=== PATIENT | male | born 1950 | race Caucasian/White ===

== ENCOUNTER 2016-10-11 09:24 | Emergency (ER) | payer BC ==
[2016-10-11 09:51] VITALS: BP 146/96
--- NOTE | 2016-10-11 09:58 | EDM.PDOC ---
ED HPI GENERAL MEDICAL PROBLEM - General Chief Complaint: Back Pain or Injury Stated Complaint: BACK PAIN Time Seen by Provider: 10/11/16 09:54 Source of Information: Reports: Patient, RN Notes Reviewed - History of Present Illness INITIAL COMMENTS - FREE TEXT/NARRATIVE: 66-year-old male comes in with back pain. This started about a week to 10 days ago after a lifting incident. He was lifting and moving a "tree". Initially the pain was primarily in the left low back worse with moving. Over the last few days he's been having pain radiating down into the left leg. This is worse with certain positions and also worse with moving. He did take a couple of oxycodone left over from prostate surgery this past winter and that is helping him some at this time. He still does have moderate discomfort with pain radiating to the left lower leg. No numbness or tingling. He is never had anything of this nature before. No fall or other injury. Left Lower Back Pain Score (Numeric/FACES): 7 - Related Data Allergies Allergy/AdvReac Type Severity Reaction Status Date / Time No Known Allergies Allergy Verified 10/11/16 09:51 Home Meds: Home Meds Acetaminophen/oxyCODONE [Percocet 325-5 MG] 1 tab PO Q6H #20 tablet 10/11/16 [Rx ] Gabapentin [Neurontin] 300 mg PO DAILY 10/11/16 [History] Lisinopril 10 mg PO DAILY 10/11/16 [History] Naproxen [Naprosyn] 500 mg PO Q12HR #20 tablet 10/11/16 [Rx] Prednisone [IJD: predniSONE] 40 mg PO BID #10 tab 10/11/16 [Rx] Past Medical History Cardiovascular History: Reports: Hypertension - Past Surgical History Male Surgical History: Reports: TURP-Transurethral Resection of Prostate Social & Family History - Tobacco Use Smoking Status *Q: Former Smoker Used Tobacco, but Quit: Yes Month Tobacco Last Used: 10 years - Caffeine Use Caffeine Use: Reports: Coffee - Recreational Drug Use Recreational Drug Use: No ED ROS GENERAL - Review of Systems Review Of Systems: See Below Constitutional: Denies: Fever, Chills HEENT: Reports: No Symptoms Respiratory: Denies: Shortness of Breath Cardiovascular: Denies: Chest Pain GI/Abdominal: Denies: Abdominal Pain, Nausea, Vomiting : Reports: No Symptoms Musculoskeletal: Reports: Back Pain Skin: Reports: No Symptoms Neurological: Reports: Numbness (He does have history of chronic paresthesias both feet, neuropathy) ED EXAM,LOWER BACK PAIN/INJURY - Physical Exam Exam: See Below General Appearance: Alert, Moderate Distress Throat/Mouth: Normal Inspection, Normal Oropharynx Head: Atraumatic. No: Facial Swelling Neck: Supple, Full Range of Motion Respiratory/Chest: No Respiratory Distress, Lungs Clear Cardiovascular: Regular Rate, Rhythm GI/Abdominal: Soft, Non-Tender Back Exam: Paraspinal Tenderness (Left low back). No: Vertebral Tenderness Extremities: Non-Tender Neurological: Alert, No Motor/Sensory Deficits, Oriented x 3, Straight Leg Raise (L) Skin Exam: Warm, Dry, Normal Color Course - Vital Signs Last Recorded V/S: Last Vital Signs Temp 97.1 F 10/11/16 09:47 Pulse 62 10/11/16 09:47 Resp 18 10/11/16 09:47 BP 146/96 H 10/11/16 09:47 Pulse Ox 99 10/11/16 09:47 - Orders/Labs/Meds Meds: Medications Discontinued Medications Generic Name Dose Route Start Last Admin Trade Name Popq PRN Reason Stop Dose Admin Ketorolac Tromethamine 60 mg 10/11/16 10:12 10/11/16 10:17 Toradol IM 10/11/16 10:13 60 mg ONETIME ONE Administration Prednisone 40 mg 10/11/16 10:12 10/11/16 10:20 Prednisone PO 10/11/16 10:13 40 mg ONETIME ONE Administration - Re-Assessments/Exams Free Text/Narrative Re-Assessment/Exam: 10/11/16 11:23 Have given Toradol 60 mg IM, prednisone 40 mg by mouth, discharge instructions as documented Departure - Departure Time of Disposition: 10:35 Disposition: Home, Self-Care 01 Condition: Fair Clinical Impression: Back pain with left-sided sciatica - Discharge Information Prescriptions: Naproxen [Naprosyn] 500 mg PO Q12HR #20 tablet Acetaminophen/oxyCODONE [Percocet 325-5 MG] 1 tab PO Q6H #20 tablet Prednisone [IJD: predniSONE] 40 mg PO BID #10 tab Instructions: Back Pain, Adult, Sciatica Referrals: Little Gómez CVT RN [Primary Care Provider] - Forms: ED Department Discharge Additional Instructions: Rest back, no heavy lifting, alternate ice and heat as needed, Naprosyn 500 mg twice daily for pain and inflammation, prednisone 40 mg twice daily for swelling and inflammation, Tylenol or oxycodone for additional pain relief up to 3 times daily, do not take Tylenol and oxycodone at the same time, do not drive or work when taking oxycodone. You may continue to see her chiropractor as needed, follow-up clinic if not much better within 3-4 days.
[2016-10-11] MEDS ORDERED: Ketorolac 60 MG/2 ML SDV IM ONE (10:12)
[2016-10-11] MEDS ORDERED: predniSONE 20 MG Tab PO ONE (10:12)
== END 2016-10-11 10:30 | disposition home or self-care (01) ==
LOC: JD.ED 09:24
DX: M54.42 Lumbago with sciatica, left side (principal); I10 Essential (primary) hypertension; Z98.890 Other specified postprocedural states; Z87.891 Personal history of nicotine dependence; Z79.899 Other long term (current) drug therapy
CPT/HCPCS: 96372; 99283; A9270; J1885

== ENCOUNTER 2017-04-29 07:29 | Day surgery (SDC) | payer BC, MEDICARE ==
[~2017-04-29 07:29] MED LIST: Lactated Ringers 1,000 ML IV SCH; Lidocaine 1%/Sod Bicarbonate in NS 8.4% 1 ML Syringe IV PRN; Sodium Chloride 0.9% 10 ML Syringe FLUSH PRN
--- NOTE | 2017-04-29 07:59 | PCM.PREANE ---
Preanesthetic Assessment - Anesthesia/Transfusion/Family Hx Anesthesia History: Prior Anesthesia Without Reaction Family History of Anesthesia Reaction: No - Review of Systems General: No Symptoms Pulmonary: No Symptoms Cardiovascular: Other (HTN, HLD) Gastrointestinal: No Symptoms Neurological: Other (peripheral neuropathy) Other: Reports: None - Physical Assessment NPO Status Date: 04/28/17 NPO Status Time: 19:30 Pulse: 70 O2 Sat by Pulse Oximetry: 94 Respiratory Rate: 16 Blood Pressure: 146/86 Temperature: 37 C Weight: 121 kg ASA Class: 2 Mental Status: Alert & Oriented x3 (3) Airway Class: Mallampati = 2 Dentition: Reports: Normal Dentition Thyro-Mental Finger Breadths: 3 Mouth Opening Finger Breadths: 3 ROM/Head Extension: Full Lungs: Clear to Auscultation, Normal Respiratory Effort Cardiovascular: Regular Rate, Regular Rhythm - Allergies Allergies/Adverse Reactions: Allergies Allergy/AdvReac Type Severity Reaction Status Date / Time No Known Allergies Allergy Verified 04/28/17 16:48 - Blood Blood Available: No Product(s) Available: None - Anesthesia Plan Pre-Op Medication Ordered: None - Acknowledgements Anesthesia Type Planned: MAC Pt an Appropriate Candidate for the Planned Anesthesia: Yes Alternatives and Risks of Anesthesia Discussed w Pt/Guardian: Yes Pt/Guardian Understands and Agrees with Anesthesia Plan: Yes PreAnesthesia Questionnaire HEENT History: Reports: Impaired Vision Cardiovascular History: Reports: High Cholesterol, Hypertension Respiratory History: Reports: Other (See Below) Other Respiratory History: bronchitis Gastrointestinal History: Reports: None Genitourinary History: Reports: Other (See Below) Other Genitourinary History: elevated PSA, malignant neoplasm of testis, Left orhciectomy, prostatectomy 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 Musculoskeletal History: Reports: Gout Neurological History: Reports: Neuropathy, Peripheral Psychiatric History: Reports: None Endocrine/Metabolic History: Reports: None Hematologic History: Reports: None Immunologic History: Reports: None Oncologic (Cancer) History: Reports: Basal Cell Carcinoma, Other (See Below) Other Oncologic History: testicular Dermatologic History: Reports: Other (See Below) Other Dermatologic History: basal cell cancer - Past Surgical History Head Surgeries/Procedures: Reports: None HEENT Surgical History: Reports: None Cardiovascular Surgical History: Reports: None Respiratory Surgical History: Reports: None GI Surgical History: Reports: None Male Surgical History: Reports: Prostatectomy, TURP-Transurethral Resection of Prostate, Other (See Below) Other Male Surgeries/Procedures: orchiectomy Endocrine Surgical History: Reports: None Neurological Surgical History: Reports: None Musculoskeletal Surgical History: Reports: None Oncologic Surgical History: - SUBSTANCE USE Smoking Status *Q: Former Smoker Recreational Drug Use History: No - HOME MEDS Home Medications: Home Meds Gabapentin [Neurontin] 1,200 mg PO TID 10/11/16 [History] Lisinopril 10 mg PO DAILY 10/11/16 [History] - CURRENT (IN HOUSE) MEDS Current Meds: Current Medications Lactated Ringer's (Ringers, Lactated) 1,000 mls @ 125 mls/hr IV ASDIRECTED FLOYD Stop: 04/29/17 23:00 Lidocaine/Sodium Bicarbonate (Buffered Lidocaine 1% In Ns 8.4%) 0.25 ml IV ONETIME PRN PRN Reason: Prior to IV Start Stop: 04/29/17 18:00 Sodium Chloride (Saline Flush) 10 ml FLUSH ASDIRECTED PRN PRN Reason: Keep Vein Open Stop: 04/29/17 18:00
[2017-04-29] MEDS ORDERED: Midazolam 1 MG/ML 2 ML SDV ONE (08:32)
[2017-04-29] MEDS ORDERED: Propofol 200 MG/20 ML SDV ONE ×2 (08:33→08:59)
--- NOTE | 2017-04-29 09:15 | PCM48HPAN ---
Post Anesthesia Note - EVALUATION WITHIN 48HRS OF ANESTHETIC Vital Signs in Normal Range: Yes Patient Participated in Evaluation: Yes Respiratory Function Stable: Yes Airway Patent: Yes Cardiovascular Function Stable: Yes Hydration Status Stable: Yes Pain Control Satisfactory: Yes Nausea and Vomiting Control Satisfactory: Yes Mental Status Recovered: Yes
[2017-04-29 09:17] VITALS: BP 144/83
--- NOTE | 2017-04-29 09:17 | PCM.OPNOTE ---
- General Post-Op/Procedure Note Date of Surgery/Procedure: 04/29/17 Operative Procedure(s): Colonoscopy with cold forceps polypectomy within the descending colon and sigmoid colon. There was a hot snare polypectomy within the rectum. Findings: 2; 5 mm polyps, one in the descending colon and one in the sigmoid. There was a 1 cm polyp within the mid rectum. Uncomplicated anal tag and external hemorrhoids. Pre Op Diagnosis: Screening colonoscopy Post-Op Diagnosis: 1. Extremities pedal tag with external hemorrhoids. 2. Sigmoid and descending colon polyp. 3. Rectal polyp Anesthesia Technique: MAC, Moderate Sedation Primary Surgeon: Ventura Mariee Pathology: Polyps from the areas described above EBL in mLs: 0 Complications: None Condition: Good Free Text/Narrative:: After adequate IV sedation and analgesia was obtained with monitoring the patient was placed on his left side. Perianal inspection and digital rectal examination revealed an anal tag with some mild uncomplicated external The prostate was grossly normal. A lubricated colonoscope was inserted into the rectum and advanced to the cecum without difficulty. The bowel preparation was adequate. The cecum ascending colon and transverse colons were endoscopically normal with no mass lesions or inflammatory changes seen. The proximal descending colon just distal to the splenic flexure there was a 5 mm polyp which I removed with cold forceps. The distal descending was unremarkable. The sigmoid was remarkable for a similar sized 5-6 mm polyp which was removed with cold forceps. There were no other lesions seen in this area. The scope was then withdrawn into the rectum where there was a 1-1/2 cm adenomatous type polyp which was removed with hot snare on blended cautery 25/25. The specimen was retrieved. Air was removed as I finished the procedure which he tolerated well. Photographs were taken for the patient and for the medical record. Because of the number the polyps I will will have him follow-up in a year for a diagnostic surveillance colonoscopy.
== END 2017-04-29 10:01 | disposition home or self-care (01) ==
LOC: JD.SDS 07:29
PROVIDERS: ATTEND Surgery
DX: Z12.11 Encounter for screening for malignant neoplasm of colon (principal); K64.4 Residual hemorrhoidal skin tags; D12.4 Benign neoplasm of descending colon; D12.5 Benign neoplasm of sigmoid colon; D12.8 Benign neoplasm of rectum; E78.5 Hyperlipidemia, unspecified; I10 Essential (primary) hypertension; G60.9 Hereditary and idiopathic neuropathy, unspecified; G62.9 Polyneuropathy, unspecified; C44.519 Basal cell carcinoma of skin of other part of trunk; M10.9 Gout, unspecified; Z85.46 Personal history of malignant neoplasm of prostate; Z90.79 Acquired absence of other genital organ(s); Z85.47 Personal history of malignant neoplasm of testis; Z87.891 Personal history of nicotine dependence; Z79.899 Other long term (current) drug therapy
CPT/HCPCS: 45380; 45385; J2250; J7120; 00812; J2704

== ENCOUNTER 2018-04-21 15:13 | Emergency (ER) | payer MEDICARE, BC ==
[2018-04-21 15:25] VITALS: BP 166/93
[2018-04-21] MEDS ORDERED: Sodium Chloride 0.9% 10 ML Syringe FLUSH PRN (15:33)
--- NOTE | 2018-04-21 17:21 | EDM.PDOC ---
ED HPI GENERAL MEDICAL PROBLEM - General Chief Complaint: Chest Pain Stated Complaint: ABNORMAL EKG SENT BY [facility] Time Seen by Provider: 04/21/18 15:19 Source of Information: Reports: Patient, RN Notes Reviewed - History of Present Illness INITIAL COMMENTS - FREE TEXT/NARRATIVE: 67-year-old male has been transferred here from the [facility] for evaluation of chest discomfort, severe vertigo nausea, dizziness started last evening while patient was driving. He continued with those symptoms for several hours last evening. This morning he felt better but still did have some mild nonspecific dizziness. No further chest pain today. No recent cough shortness of breath abdominal pain or other unusual symptoms. He does not history of cardiac disease, does have history of hypertension. He does not smoke and also is not diabetic. Family history also negative for cardiac disease. He has had episodes of vertigo in the past. Vitals often have occurred when driving looking from one side to the other. - Related Data Allergies Allergy/AdvReac Type Severity Reaction Status Date / Time No Known Allergies Allergy Verified 04/28/17 16:48 Home Meds: Home Meds Gabapentin [Neurontin] 1,200 mg PO TID 10/11/16 [History] Lisinopril 10 mg PO DAILY 10/11/16 [History] Past Medical History HEENT History: Reports: Impaired Vision Cardiovascular History: Reports: High Cholesterol, Hypertension Respiratory History: Reports: Other (See Below) Other Respiratory History: bronchitis Gastrointestinal History: Reports: None Genitourinary History: Reports: Other (See Below) Other Genitourinary History: elevated PSA, malignant neoplasm of testis, Left orhciectomy, prostatectomy 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 Musculoskeletal History: Reports: Gout Neurological History: Reports: Neuropathy, Peripheral Psychiatric History: Reports: None Endocrine/Metabolic History: Reports: None Hematologic History: Reports: None Immunologic History: Reports: None Oncologic (Cancer) History: Reports: Basal Cell Carcinoma, Other (See Below) Other Oncologic History: testicular Dermatologic History: Reports: Other (See Below) Other Dermatologic History: basal cell cancer - Past Surgical History Head Surgeries/Procedures: Reports: None HEENT Surgical History: Reports: None Cardiovascular Surgical History: Reports: None Respiratory Surgical History: Reports: None GI Surgical History: Reports: None Male Surgical History: Reports: Prostatectomy, TURP-Transurethral Resection of Prostate, Other (See Below) Other Male Surgeries/Procedures: orchiectomy Endocrine Surgical History: Reports: None Neurological Surgical History: Reports: None Musculoskeletal Surgical History: Reports: None Social & Family History - Tobacco Use Smoking Status *Q: Former Smoker Used Tobacco, but Quit: Yes Month/Year Tobacco Last Used: 12yrs - Caffeine Use Caffeine Use: Reports: Coffee, Soda - Recreational Drug Use Recreational Drug Use: No ED ROS GENERAL - Review of Systems Review Of Systems: See Below Constitutional: Denies: Fever, Chills, Diaphoresis HEENT: Reports: Vertigo. Denies: Ear Discharge, Ear Pain, Sinus Problem, Throat Pain Respiratory: Denies: Shortness of Breath Cardiovascular: Reports: Chest Pain GI/Abdominal: Reports: Nausea. Denies: Abdominal Pain, Diarrhea, Vomiting Musculoskeletal: Denies: Neck Pain, Shoulder Pain, Arm Pain, Back Pain Skin: Reports: No Symptoms Neurological: Reports: Dizziness. Denies: Headache, Numbness, Tingling, Trouble Speaking, Difficulty Walking, Weakness ED EXAM, GENERAL - Physical Exam Exam: See Below General Appearance: Alert, No Apparent Distress Eye Exam: Bilateral Eye: PERRL Throat/Mouth: Normal Inspection, Normal Oropharynx Head: Atraumatic. No: Facial Swelling Neck: Supple, Full Range of Motion. No: Lymphadenopathy (L), Lymphadenopathy (R ) Respiratory/Chest: No Respiratory Distress, Lungs Clear, Normal Breath Sounds Cardiovascular: Regular Rate, Rhythm GI/Abdominal: Non-Tender Extremities: Normal Inspection, Normal Range of Motion. No: Pedal Edema, Leg Pain Neurological: Alert, Oriented, No Motor/Sensory Deficits, Other (finger to nose testing normal) Skin Exam: Warm, Dry, Normal Color Course - Vital Signs Last Recorded V/S: Last Vital Signs Temp 97.6 F 04/21/18 15:23 Pulse 66 04/21/18 15:23 Resp 14 04/21/18 15:23 BP 166/93 H 04/21/18 15:23 Pulse Ox 97 04/21/18 15:23 - Orders/Labs/Meds Orders: Active Orders 24 hr Category Date Time Status EKG 12 Lead [EKG Documentation Completion] [RC] STAT Care 04/21/18 15:37 Active Peripheral IV Care [RC] . DIRECTED Care 04/21/18 15:33 Active Peripheral IV Insertion Adult [OM.PC] Stat Oth 01/09/19 15:33 Ordered Labs: Laboratory Tests 04/21/18 04/21/18 Range/Units 15:55 15:55 WBC 7.54 (4.23-9.07) K/mm3 RBC 5.01 (4.63-6.08) M/mm3 Hgb 16.3 (13.7-17.5) gm/L Hct 47.7 (40.1-51.0) % MCV 95.2 H (79.0-92.2) fl MCH 32.5 H (25.7-32.2) pg MCHC 34.2 (32.2-35.5) g/dl RDW Std Deviation 50.7 H (35.1-43.9) fL Plt Count 483 H (163-337) K/mm3 MPV 9.3 L (9.4-12.3) fl Neut % (Auto) 64.5 (34.0-67.9) % Lymph % (Auto) 26.0 (21.8-53.1) % [place] % (Auto) 6.4 (5.3-12.2) % Eos % (Auto) 2.4 (0.8-7.0) Baso % (Auto) 0.4 (0.1-1.2) % Neut # (Auto) 4.87 (1.78-5.38) K/mm3 Lymph # (Auto) 1.96 (1.32-3.57) K/mm3 [place] # (Auto) 0.48 (0.30-0.82) K/mm3 Eos # (Auto) 0.18 (0.04-0.54) K/mm3 Baso # (Auto) 0.03 (0.01-0.08) K/mm3 Sodium 141 (136-145) mEq/L Potassium 4.1 (3.5-5.1) mEq/L Chloride 103 (98-107) mEq/L Carbon Dioxide 30 (21-32) mEq/L Anion Gap 12.1 (5-15) BUN 18 (7-18) mg/dL Creatinine 1.1 (0.7-1.3) mg/dL Est Cr Clr Drug Dosing 69.13 mL/min Estimated GFR (MDRD) > 60 (>60) mL/min BUN/Creatinine Ratio 16.4 (14-18) Glucose 127 H (80-115) mg/dL Calcium 9.0 (8.5-10.1) mg/dL Total Bilirubin 0.7 (0.2-1.0) mg/dL AST 32 (15-37) U/L ALT 61 (16-63) U/L Alkaline Phosphatase 51 (46-116) U/L Troponin I < 0.017 (0.00-0.056) ng/mL Total Protein 7.5 (6.4-8.2) g/dl Albumin 4.1 (3.4-5.0) g/dl Globulin 3.4 gm/dL Albumin/Globulin Ratio 1.2 (1-2) Meds: Medications Discontinued Medications Generic Name Dose Route Start Last Admin Trade Name Freq PRN Reason Stop Dose Admin Sodium Chloride 10 ml 04/21/18 15:33 04/21/18 15:57 Saline Flush FLUSH 10 ml ASDIRECTED PRN Administration Keep Vein Open Departure - Departure Time of Disposition: 17:17 Disposition: Home, Self-Care 01 Condition: Fair Clinical Impression: Atypical chest pain Labyrinthitis Qualifiers: Laterality: unspecified laterality Qualified Code(s): H83.09 - Labyrinthitis, unspecified ear Instructions: Labyrinthitis, [id number], Nonspecific Chest Pain, [id number] Referrals: Little Gómez JIRA ADMINISTRATOR [Primary Care Provider] - Forms: ED Department Discharge Additional Instructions: Your EKG here in the ED at this time does not show acute changes for concern. Your troponin, a marker for heart attack has come back normal. Try be careful to move your head slowly and carefully when driving. If acute vertigo or dizziness does hit then you need to be even more careful to avoid sudden motion of your head. It is best to just lie down and rest not move your head at all until the acute vertigo, nausea feeling gets better. Antivert or meclizine is a medication that is available [id number]. You can buy a bottle of 100 very inexpensively. You will need to ask your phramacist, it is usually stored behind the counter. Take one half tablet every 8-12 hours if needed for further attacks of vertigo. Follow-up clinic as needed. Return to ED as needed if symptoms worsening in any way. - My Orders Last 24 Hours: My Active Orders 04/21/18 15:33 Peripheral IV Care [RC] . DIRECTED Peripheral IV Insertion Adult [OM.PC] Stat 04/21/18 15:37 EKG 12 Lead [EKG Documentation Completion] [RC] STAT - Assessment/Plan Last 24 Hours: My Active Orders 04/21/18 15:33 Peripheral IV Care [RC] . DIRECTED Peripheral IV Insertion Adult [OM.PC] Stat 04/21/18 15:37 EKG 12 Lead [EKG Documentation Completion] [RC] STAT
== END 2018-04-21 17:30 | disposition home or self-care (01) ==
LOC: JD.ED 15:13
DX: R07.89 Other chest pain (principal); H83.09 Labyrinthitis, unspecified ear; I10 Essential (primary) hypertension; Z87.891 Personal history of nicotine dependence; Z79.899 Other long term (current) drug therapy
CPT/HCPCS: 36415; 80053; 84484; 85025; 93005; 99285-25

== ENCOUNTER 2021-02-28 10:12 | Day surgery (SDC) | payer MEDICARE, BC ==
[~2021-02-28 10:12] MED LIST changes: +Lidocaine 1%/Sod Bicarbonate in NS 8.4% 1 ML Syringe IDERM PRN; -Lidocaine 1%/Sod Bicarbonate in NS 8.4% 1 ML Syringe IV PRN
--- NOTE | 2021-02-28 11:07 | PCM.PREANE ---
Preanesthetic Assessment - Procedure Proposed Procedure: colonoscopy - Anesthesia/Transfusion/Family Hx Anesthesia History: Prior Anesthesia Without Reaction Family History of Anesthesia Reaction: No Transfusion History: No Prior Transfusion(s) - Review of Systems General: No Symptoms Pulmonary: No Symptoms Cardiovascular: No Symptoms Gastrointestinal: No Symptoms Neurological: No Symptoms Other: Reports: None - Physical Assessment NPO Status Date: 02/28/21 NPO Status Time: 04:00 Vital Signs: 157/86 68 96% 16 98.2 Height: 6 ft 2 in Weight: 127 kg ASA Class: 2 Mental Status: Alert & Oriented x3 Airway Class: Mallampati = 1 Dentition: Reports: Normal Dentition Thyro-Mental Finger Breadths: 3 Mouth Opening Finger Breadths: 3 ROM/Head Extension: Full Lungs: Clear to Auscultation, Normal Respiratory Effort Cardiovascular: Regular Rate, Regular Rhythm - Allergies Allergies/Adverse Reactions: Allergies Allergy/AdvReac Type Severity Reaction Status Date / Time No Known Allergies Allergy Verified 02/27/21 14:49 - Blood Blood Available: No - Acknowledgements Anesthesia Type Planned: MAC Pt an Appropriate Candidate for the Planned Anesthesia: Yes Alternatives and Risks of Anesthesia Discussed w Pt/Guardian: Yes Pt/Guardian Understands and Agrees with Anesthesia Plan: Yes PreAnesthesia Questionnaire HEENT History: Reports: Impaired Vision Cardiovascular History: Reports: High Cholesterol, Hypertension Respiratory History: Reports: Other (See Below) Other Respiratory History: bronchitis Gastrointestinal History: Reports: None Genitourinary History: Reports: Other (See Below) Other Genitourinary History: elevated PSA, malignant neoplasm of testis, Left orhciectomy, prostatectomy 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 Musculoskeletal History: Reports: Gout Neurological History: Reports: Neuropathy, Peripheral Psychiatric History: Reports: None Endocrine/Metabolic History: Reports: None Hematologic History: Reports: None Immunologic History: Reports: None Oncologic (Cancer) History: Reports: Basal Cell Carcinoma, Other (See Below) Other Oncologic History: testicular Dermatologic History: Reports: Other (See Below) Other Dermatologic History: basal cell cancer - Past Surgical History Head Surgeries/Procedures: Reports: None HEENT Surgical History: Reports: None Cardiovascular Surgical History: Reports: None Respiratory Surgical History: Reports: None GI Surgical History: Reports: None Male Surgical History: Reports: Prostatectomy, TURP-Transurethral Resection of Prostate, Other (See Below) Other Male Surgeries/Procedures: orchiectomy Endocrine Surgical History: Reports: None Neurological Surgical History: Reports: None Musculoskeletal Surgical History: Reports: None - SUBSTANCE USE Tobacco Use Status *Q: Former Tobacco User Tobacco Use Within Last Twelve Months: No Second Hand Smoke Exposure: No Days Per Week of Alcohol Use: 1 Recreational Drug Use History: No - HOME MEDS Home Medications: Home Meds Ascorbic Acid [Vitamin C] 1,000 mg PO DAILY 02/06/21 [History] Aspirin 81 mg PO BID 02/06/21 [History] Cholecalciferol (Vitamin D3) [Vitamin D3] 2,000 unit PO DAILY 02/06/21 [History] DULoxetine [Cymbalta] 60 mg PO DAILY 02/06/21 [History] Furosemide [Lasix] 20 mg PO DAILY 02/06/21 [History] Hydroxyurea 500 mg PO DAILY 02/06/21 [History] Multivitamin 1 tab PO DAILY 02/06/21 [History] Pregabalin 300 mg PO BID 02/06/21 [History] Sildenafil Citrate [Viagra] 50 mg PO ASDIRECTED PRN 02/06/21 [History] Turmeric Root Extract [Turmeric Curcumin] 500 mg PO BID 02/06/21 [History] Vit C/Zn Gluc/Herbal No.325 [Elderberry Zinc Vit C Lozenge] 1 dose PO DAILY 02/06/21 [History] Vitamin B Complex 1 cap PO DAILY 02/06/21 [History] lisinopriL [Lisinopril] 40 mg PO DAILY 02/06/21 [History] - CURRENT (IN HOUSE) MEDS Current Meds: Current Medications Lactated Ringer's (Ringers, Lactated) 1,000 mls @ 125 mls/hr IV ASDIRECTED FLOYD Stop: 02/28/21 23:00 Lidocaine/Sodium Bicarbonate (Lidocaine 1%/Sod Bicarbonate In Ns 8.4% 1 Ml Syringe) 0.25 ml IDERM ONETIME PRN PRN Reason: Prior to IV Start Stop: 02/28/21 18:00 Sodium Chloride (Sodium Chloride 0.9% 10 Ml Syringe) 10 ml FLUSH ASDIRECTED PRN PRN Reason: Keep Vein Open Stop: 02/28/21 18:00 Discontinued Medications Lactated Ringer's (Ringers, Lactated) 1,000 mls @ 125 mls/hr IV ASDIRECTED FLOYD Stop: 02/07/21 23:00 Lidocaine/Sodium Bicarbonate (Lidocaine 1%/Sod Bicarbonate In Ns 8.4% 1 Ml Syringe) 0.25 ml IDERM ONETIME PRN PRN Reason: Prior to IV Start Stop: 02/07/21 18:00 Sodium Chloride (Sodium Chloride 0.9% 10 Ml Syringe) 10 ml FLUSH ASDIRECTED PRN PRN Reason: Keep Vein Open Stop: 02/07/21 18:00
[2021-02-28] MEDS ORDERED: Lidocaine 1% 4 ML ONE (11:10)
[2021-02-28] MEDS ORDERED: Propofol 200 MG/20 ML SDV ONE ×2 (11:10→12:03)
--- NOTE | 2021-02-28 12:43 | PCM.PRNOTE ---
- Free Text/Narrative Note: Date: 02/28/2021 Procedure: screening colonoscopy History: 3 adenomatous polyps removed on screening colonoscopy 5 years ago Endoscopist: Yasir Morris MD Findings: Fair prep. Cecum reached. Single 1 cm pedunculated polyp identified in the descending colon and removed with hot snare polypectomy technique. The specimen was not successfully retrieved because the specimen trap was not properly in place while suctioning occurred. No other polyps were identified. No significant diverticulosis. Internal hemorrhoids. Detailed Report: The patient was taken to the endoscopy suite and placed in left lateral decubitus position. Timeout was performed and monitored anesthesia care was initiated. The anus appeared to have some external hemorrhoids that were small. Digital rectal exam was otherwise unremarkable. The scope was inserted and advanced to the cecum. The prep was fair. The scope was slowly withdrawn and mucosal surfaces carefully inspected. A single moderate sized pedunculated polyp was identified at about 70 cm from the anal verge and what looked to be t he descending colon. This was removed using a hot snare. The specimen was not successfully retrieved. No additional polyps were identified. There was no significant diverticulosis. On retroflexion in the rectum, internal hemorrhoids were noted. Air was suctioned from the distal colon and rectum prior to withdrawal of the scope. The patient tolerated the procedure well.
--- NOTE | 2021-02-28 12:45 | PCM48HPAN ---
Post Anesthesia Note - EVALUATION WITHIN 48HRS OF ANESTHETIC Vital Signs in Normal Range: Yes Patient Participated in Evaluation: Yes Respiratory Function Stable: Yes Airway Patent: Yes Cardiovascular Function Stable: Yes Hydration Status Stable: Yes Pain Control Satisfactory: Yes Nausea and Vomiting Control Satisfactory: Yes Mental Status Recovered: Yes Vital Signs: 170/82 18 73 98.0 96%
[2021-02-28 13:18] VITALS: BP 155/84; PULSE 71
== END 2021-02-28 13:10 | disposition home or self-care (01) ==
LOC: JD.SDS 10:12
PROVIDERS: ATTEND Surgery
DX: Z12.11 Encounter for screening for malignant neoplasm of colon (principal); D12.2 Benign neoplasm of ascending colon; K64.8 Other hemorrhoids; M10.9 Gout, unspecified; I10 Essential (primary) hypertension; E78.5 Hyperlipidemia, unspecified; G62.9 Polyneuropathy, unspecified; E55.9 Vitamin D deficiency, unspecified; Z79.82 Long term (current) use of aspirin; Z79.899 Other long term (current) drug therapy; Z98.890 Other specified postprocedural states; Z87.891 Personal history of nicotine dependence
CPT/HCPCS: 45385; J2704; J7120; 00812; 88305